=== PATIENT | male | born 1960 | race Caucasian/White ===

== ENCOUNTER 2024-04-06 17:15 | Emergency (ER) | payer MEDICARE ==
[~2024-04-06] VITALS: Ht 167.6 cm; Wt 63.6 kg
[2024-04-06 17:18] VITALS: BP 134/77; PULSE 78; RESP 16; TEMP 98; O2SAT 95
== END 2024-04-06 17:38 ==
LOC: ER 17:15
DX: Z00.00 Encounter for general adult medical examination without abnormal findings (principal); Z88.7 Allergy status to serum and vaccine
CPT/HCPCS: 99283